=== PATIENT | male | born 1970 | race Caucasian/White ===

== ENCOUNTER 2016-07-31 10:53 | Outpatient (CLI) | payer OTHER | END 2016-07-31 10:54 | disposition home or self-care (01) | DX: G47.30 Sleep apnea, unspecified (principal); G47.8 Other sleep disorders; G47.10 Hypersomnia, unspecified; R06.83 Snoring ==

== ENCOUNTER 2016-08-28 19:31 | Outpatient (CLI) | payer OTHER | END 2016-08-28 19:32 | disposition home or self-care (01) | DX: G47.30 Sleep apnea, unspecified (principal) ==

== ENCOUNTER 2016-09-19 09:38 | Outpatient (CLI) | payer OTHER | END 2016-09-19 09:39 | disposition home or self-care (01) | LOC: SC 09:38 | PROVIDERS: ATTEND Nurse Practitioner Family | DX: R06.83 Snoring (principal); G47.00 Insomnia, unspecified | CPT/HCPCS: 99212; 99214 ==

== ENCOUNTER 2019-08-05 16:49 | Outpatient (CLI) | payer OTHER ==
--- NOTE | 2019-08-06 08:55 | MRI Report ---
Reason: GLENOID FRACTURE Procedure Date: 08/05/2019 Accession Number: [id number] / [id number] Procedure: MRI - Shoulder RT W/O CPT Code: Final Report FULL RESULT: EXAM: RIGHT SHOULDER MRI WITHOUT CONTRAST EXAM DATE: 08/05/2019 06:02 PM. CLINICAL HISTORY: Glenoid fracture. COMPARISON: None. TECHNIQUE: Multiplanar, multisequence T1-weighted and fluid-sensitive sequences of the shoulder without contrast. Other: None. FINDINGS: Rotator cuff: Patchy edema involving the distal supraspinatus, infraspinatus and upper subscapularis. No rotator cuff tear identified. No rotator cuff muscle atrophy or fatty replacement. Long head biceps tendon: Intact demonstrating normal course, signal and morphology. Labrum: Edema, abnormal signal and morphology suggesting ill-defined tears at the posterosuperior and posteroinferior labrum. No paralabral cyst formation. Bones and articular surfaces: Minimally displaced vertical fracture along the entire posterior glenoid with associated bone and soft tissue edema. Prominent impaction fracture at the anteromedial aspect of the humeral head with associated marrow edema consistent with recent reverse Hill-Sachs fracture. Small joint effusion. Deformity of the articular cartilage over the area of impaction. Acromioclavicular joint: Mild degenerative change. Type II acromion. IMPRESSION: 1. Findings consistent with recent posterior shoulder dislocation including acute or subacute reverse Hill-Sachs impaction fracture, and fracture along the posterior rim of the glenoid. 2. Suspicious for ill-defined tears at the posterosuperior and posteroinferior labrum. 3. Mild tendinosis involving the supraspinatus, infraspinatus and upper subscapularis. RADIA
== END 2019-08-05 16:50 | disposition home or self-care (01) ==
LOC: DI 16:49
PROVIDERS: ATTEND Orthopaedic Surgery
DX: S42.141A Displaced fracture of glenoid cavity of scapula, right shoulder, initial encounter for closed fracture (principal); S42.291A Other displaced fracture of upper end of right humerus, initial encounter for closed fracture

== ENCOUNTER 2019-08-07 07:12 | Day surgery (SDC) | payer OTHER ==
[2019-08-07] MEDS: LACTATED RINGERS 1,000 ML IV ONE ×2 (06:54→12:48)
[~2019-08-07 07:12] MED LIST: BUPIVACAINE 0.25% PF 30 ML VIAL ONE; EPINEPHrine 1 MG/ML AMP ONE; cefTRIAXone 2 GM VIAL ONE
[2019-08-07] MEDS ORDERED: MIDAZOLAM 2 MG/2 ML VIAL IVP ONE (07:13)
[2019-08-07] MEDS ORDERED: ONDANSETRON 4 MG/2 ML VIAL IVP ONE (07:13)
[2019-08-07] MEDS ORDERED: HYDROmorphone 1 MG/ML CARPUJECT IVP ONE (07:13)
[2019-08-07] MEDS ORDERED: fentaNYL 100 MCG/2 ML VIAL IVP ONE (07:13)
[2019-08-07] MEDS ORDERED: PROPOFOL 200 MG/20 ML VIAL IVP ONE (07:13)
[2019-08-07] MEDS ORDERED: DEXAMETHASONE 20 MG/5 ML VIAL IVP ONE (07:13)
[2019-08-07] MEDS ORDERED: ROCURONIUM 50 MG/5 ML VIAL IVP ONE (07:13)
--- NOTE | 2019-08-07 07:28 | ANESTHESIA ---
Pre-Anesthesia VS, & Labs - Diagnosis Right humerus fracture - Procedure Right shoulder scope Vital Signs: Temp Pulse Resp BP Pulse Ox 36 C L 72 18 142/103 H 100 08/07/19 06:29 08/07/19 06:29 08/07/19 06:29 08/07/19 06:29 08/07/19 06:29 Height 5 ft 10 in Weight (kg) 95.25 kg Home Medications and Allergies Home Medications: Ambulatory Orders Acetaminophen [Tylenol] 650 mg PO Q6H PRN 08/05/19 Esomeprazole Magnesium [Nexium] 20 mg PO DAILY 08/05/19 Fluticasone [Flonase] 1 sprays PRASANTH DAILY 08/05/19 Sertraline [Zoloft] 100 mg PO DAILY 08/05/19 Simvastatin [Zocor] 20 mg PO DAILY 08/05/19 Nicotine Polacrilex [Nicotine Lozenge] 4 mg PO DAILY 08/07/19 Acetaminophen [Tylenol] 650 mg PO Q6H PRN 08/05/19 Esomeprazole Magnesium [Nexium] 20 mg PO DAILY 08/05/19 Fluticasone [Flonase] 1 sprays PRASANTH DAILY 08/05/19 Sertraline [Zoloft] 100 mg PO DAILY 08/05/19 Simvastatin [Zocor] 20 mg PO DAILY 08/05/19 Nicotine Polacrilex [Nicotine Lozenge] 4 mg PO DAILY 08/07/19 Allergies/Adverse Reactions: Allergies Allergy/AdvReac Type Severity Reaction Status Date / Time No Known Drug Allergies Allergy Verified 08/05/19 11:33 Anes History & Medical History - Anesthetic History Anesthesia Complications: reports: No previous complications Family history of Anesthesia Complications: Denies Family history of Malignant Hyperthermia: Denies - Medical History Cardiovascular: reports: High cholesterol Pulmonary: reports: None Gastrointestinal: reports: GERD Urinary: reports: None Neuro: reports: None Musculoskeletal: reports: Other (RIght shoulder pain) Endocrine/Autoimmune: reports: None Skin: reports: Psoriasis - Surgical History Orthopedic: Other Exam General: Alert, Oriented x3, No acute distress Dental: WNL Mouth Opening: Greater than 4 Fingerbreadths Neck Mobility: Normal Mallampati classification: I Respiratory: Lungs clear Cardiovascular: Regular rate Neurological: Normal speech Mental/Cognitive Status: Alert/Oriented X3, Normal for patient Cognitive Status: Within normal limits Plan Anesthesia Type: General, Interscalene Block Regional Block: Per Surgeon's request for Post Op pain control Consent for Procedure(s) Verified and Reviewed: Yes Code Status: Attempt Resuscitation ASA classification: 2-Mild systemic disease Is this case an emergency?: No
[2019-08-07] MEDS: EPINEPHrine 1 MG/ML AMP IR ONE (09:07)
[2019-08-07] MEDS ORDERED: ONDANSETRON 4 MG/2 ML VIAL IVP PRN (13:21)
[2019-08-07] MEDS ORDERED: oxyCODONE 5 MG TABLET PO PRN (13:21)
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
[2019-08-07 14:12] VITALS: BP 141/95
== END 2019-08-07 07:13 | disposition home or self-care (01) ==
LOC: SDS 07:12
PROVIDERS: ATTEND Orthopaedic Surgery
DX: S42.141A Displaced fracture of glenoid cavity of scapula, right shoulder, initial encounter for closed fracture (principal); M24.011 Loose body in right shoulder; M21.821 Other specified acquired deformities of right upper arm

== ENCOUNTER 2022-01-15 14:14 | Outpatient (CLI) | payer OTHER ==
--- NOTE | 2022-01-15 17:59 | MRI Report ---
PROCEDURE: MRI cervical spine without contrast INDICATIONS: CERVICALGIA TECHNIQUE: Noncontrast sagittal T1 spin echo and T2 fast spin echo, sagittal STIR, foraminal oblique sagittal T2 fast spin echo, and axial gradient echo or T2 fast spin echo through the cervical spine. COMPARISON: None. FINDINGS: Image quality: Excellent. Alignment and Curvature: There is normal bony alignment. Bone Marrow: Marrow demonstrates normal overall signal. Spinal Cord: Visualized spinal cord has normal size and signal. No cerebellar tonsillar herniation. Paraspinous Soft Tissues: No paravertebral masses. Prevertebral soft tissues are normal in thicknes s. C2-C3: Normal in appearance. C3-C4: Normal in appearance. C4-C5: Normal in appearance. C5-C6: Disc space narrowing posterior disc osteophyte complex and hypertrophic uncovertebral joints results in mild to moderate central stenosis. Mild left foraminal stenosis C6-C7: Disc space narrowing posterior disc osteophyte complex and hypertrophic uncovertebral joints results in mild central and moderate left foraminal stenosis. No right foraminal stenosis. C7-T1: Normal in appearance. IMPRESSION: Degenerative disc disease and arthropathy results in mild to moderate central stenosis at C5-6 Reviewed by: Sebastian Jackson MD on 01/15/2022 4:58 PM MAGNUS Approved by: Sebastian Jackson MD on 01/15/2022 4:58 PM [facility] Station ID: [id number]
== END 2022-01-15 14:15 | disposition home or self-care (01) ==
LOC: DI 14:14
PROVIDERS: ATTEND Family Medicine
DX: M50.322 Other cervical disc degeneration at C5-C6 level (principal); M47.812 Spondylosis without myelopathy or radiculopathy, cervical region; M48.02 Spinal stenosis, cervical region

== ENCOUNTER 2022-03-08 08:00 | Day surgery (SDC) | payer OTHER ==
--- NOTE | 2022-03-08 08:24 | ANESTHESIA ---
Pre-Anesthesia VS, & Labs - Diagnosis screening - Procedure colonoscopy Vital Signs: Temp Pulse Resp BP Pulse Ox O2 Flow Rate 36.2 C L 69 11 L 139/89 H 99 03/08/22 08:19 03/08/22 08:19 03/08/22 08:19 03/08/22 08:19 03/08/22 08:19 Height: 5 ft 10 in Weight (kg): 101 kg Body Mass Index: 31.9 BMI Classification: Obese - NPO >8 hours Last Fluid Intake: am prep - Lab Results Lab results reviewed: Yes Home Medications and Allergies Acetaminophen [Tylenol] 650 mg PO Q6H PRN 08/05/19 Esomeprazole Magnesium [Nexium] 20 mg PO PRN PRN 08/05/19 Fluticasone [Flonase] 1 sprays PRASANTH PRN PRN 08/05/19 Sertraline [Zoloft] 150 mg PO DAILY 08/05/19 Simvastatin [Zocor] 20 mg PO DAILY 08/05/19 Nicotine Polacrilex [Nicotine Lozenge] 4 mg PO DAILY 08/07/19 Allergies/Adverse Reactions: Allergies Allergy/AdvReac Type Severity Reaction Status Date / Time No Known Drug Allergies Allergy Verified 03/07/22 12:49 Anes History & Medical History - Anesthetic History Anesthesia Complications: reports: No previous complications Family history of Anesthesia Complications: Denies Family history of Malignant Hyperthermia: Denies - Medical History Cardiovascular: reports: High cholesterol Pulmonary: reports: None Gastrointestinal: reports: GERD Urinary: reports: None Neuro: reports: None Musculoskeletal: reports: Osteoarthritis, Other Endocrine/Autoimmune: reports: None Skin: reports: Psoriasis - Surgical History Orthopedic: reports: Shoulder arthroplasty, Other Exam General: Alert, Oriented x3, Cooperative Dental: WNL Mouth Openin Fingerbreadth Neck Mobility: Normal Mallampati classification: II Thyromental Distance: 4-6 cm Respiratory: Lungs clear, Normal breath sounds, No respiratory distress Cardiovascular: Regular rate Neurological: Normal gait, Normal speech Mental/Cognitive Status: Alert/Oriented X3, Normal for patient Cognitive Status: Within normal limits Plan Anesthesia Type: Total IV Consent for Procedure(s) Verified and Reviewed: Yes Code Status: Attempt Resuscitation ASA classification: 2-Mild systemic disease Is this case an emergency?: No
[2022-03-08] MEDS ORDERED: PROPOFOL 500 MG/50 ML 500 MG/50 ML VIAL ONE (08:25)
[2022-03-08] MEDS ORDERED: MIDAZOLAM 2 MG/2 ML VIAL ONE (08:27)
[2022-03-08] MEDS ORDERED: LACTATED RINGERS 1,000 ML IV ONE (08:29)
[2022-03-08] MEDS ORDERED: LACTATED RINGERS 500 ML IV ONE (09:37)
[2022-03-08 10:01] VITALS: BP 109/77
--- NOTE | 2022-03-08 10:06 | ANESTHESIA POST OP EVALUATION ---
Anesthesia Post Eval - Post Anesthesia Eval Vitals: Last Vital Signs Temp 36.3 C L 03/08/22 10:00 Pulse 65 03/08/22 10:00 Resp 16 03/08/22 10:00 BP 109/77 03/08/22 10:00 Pulse Ox 97 03/08/22 10:00 O2 Flow Rate CV Function Including HR & BP: Stable Pain Control: Satisfactory Nausea & Vomiting: Negative Mental Status: Baseline Respiratory Status: Airway Patent Hydration Status: Satisfactory Anesthesia Complications: None
== END 2022-03-08 08:01 | disposition home or self-care (01) ==
LOC: SDS 08:00
PROVIDERS: ATTEND Surgery
PROC: 0DBM8ZZ Excision of Descending Colon, Via Natural or Artificial Opening Endoscopic (ICD-10-PCS; principal; 2022-03-08 09:30)
DX: Z12.11 Encounter for screening for malignant neoplasm of colon (principal); D12.4 Benign neoplasm of descending colon; K57.30 Diverticulosis of large intestine without perforation or abscess without bleeding; E66.9 Obesity, unspecified; Z68.31 Body mass index [BMI] 31.0-31.9, adult
CPT/HCPCS: 45380; J7120

== ENCOUNTER 2022-10-14 19:12 | Emergency (ER) | payer OTHER ==
[2022-10-14] MEDS ORDERED: KETOROLAC 30 MG/ML VIAL IVP STA (19:38)
[2022-10-14] MEDS ORDERED: SODIUM CHLORIDE 0.9% 1,000 ML IV STA (19:38)
--- NOTE | 2022-10-14 19:42 | ED Physician Documentation ---
PD HPI ABD PAIN - Stated complaint Stated Complaint: MALE /BACK PX - Chief complaint Chief Complaint: General - History obtained from History obtained from: Patient, Family - History of Present Illness Timing - onset: Yesterday Timing - duration: Days (1) Timing - details: Abrupt onset, Waxing and waning, Still present in ED Quality: Sharp, Pain Location: LLQ, Other (L testicle) Radiation: Left flank Improved by: Other (nothing) Worsened by: Other (nothing) Associated symptoms: Nausea. No: Fever, Vomiting, Diarrhea, Constipation, Dysuria, Hematuria Similar symptoms before: Has not had sx before Recently seen: Not recently seen - Additional information Additional information: 52-year-old Aren Morillo reports that yesterday he began to feel some pains in his left lower quadrant that he felt like might be gas and he had some pain radiating down into his left testicle and this seemed to resolve he was doing well today and then woke up from a nap in horrible pain on the left side the pain is into the left testicle and radiated into the left flank. The patient is unable to get comfortable in any position. He has not had this happen to him previously. He has a family history of kidney stone. Review of Systems Constitutional: denies: Fever Eyes: denies: Decreased vision Ears: denies: Ear pain Nose: denies: Rhinorrhea / runny nose, Congestion Throat: denies: Sore throat Cardiac: denies: Chest pain / pressure, Palpitations Respiratory: denies: Dyspnea, Cough GI: reports: Abdominal Pain, Nausea. denies: Vomiting, Constipation, Diarrhea : reports: Testicular pain. denies: Dysuria, Frequency, Hematuria Skin: denies: Rash Musculoskeletal: reports: Back pain. denies: Neck pain PD PAST MEDICAL HISTORY - Past Medical History Cardiovascular: High cholesterol Respiratory: None Neuro: None Endocrine/Autoimmune: None GI: GERD : None HEENT: None Psych: None Musculoskeletal: Osteoarthritis, Other Derm: Psoriasis - Past Surgical History Ortho: Shoulder arthroplasty, Other - Present Medications Home Medications: Ambulatory Orders Medication Instructions Recorded Confirmed Acetaminophen [Tylenol] 650 mg PO Q6H PRN 08/05/19 03/07/22 Esomeprazole Magnesium [Nexium] 20 mg PO PRN PRN 08/05/19 03/07/22 Fluticasone [Flonase] 1 sprays PRASANTH PRN PRN 08/05/19 03/07/22 Sertraline [Zoloft] 150 mg PO DAILY 08/05/19 03/07/22 Simvastatin [Zocor] 20 mg PO DAILY 08/05/19 03/07/22 Nicotine Polacrilex [Nicotine 4 mg PO DAILY 08/07/19 03/07/22 Lozenge] Dupilumab [Dupixent Pen] 200 mg SQ 03/08/22 HYDROcod/ACETAM 5/325 [[place] 5/325] 1 - 2 tablet PO Q6H PRN #14 tablet 10/14/22 - Allergies Allergies/Adverse Reactions: Allergies Allergy/AdvReac Type Severity Reaction Status Date / Time No Known Drug Allergies Allergy Verified 10/14/22 19:17 PD ED PE NORMAL - Vitals Vital signs reviewed: Yes (hypertensive) - General General: Alert and oriented X 3, Well developed/nourished, Other (Uncomfortable 52-year-old male lying on his right side with his left leg up appears to be in pain) - HEENT HEENT: Atraumatic, PERRL, EOMI - Neck Neck: Supple, no meningeal sign - Cardiac Cardiac: RRR, No murmur - Respiratory Respiratory: No respiratory distress, Clear bilaterally - Abdomen Abdomen: Normal bowel sounds, Soft, Non tender, Non distended, No organomegaly - Back Back: No CVA TTP, No spinal TTP - Derm Derm: Normal color, Warm and dry, No rash - Extremities Extremities: No deformity, No edema - Neuro Neuro: Alert and oriented X 3, conciliator 2-12 intact, No motor deficit, No sensory deficit, Normal speech Eye Opening: Spontaneous Motor: Obeys Commands Verbal: Oriented GCS Score: 15 - Psych Psych: Normal mood, Normal affect Results - Vitals Vitals: Vital Signs - 24 hr 10/14/22 10/14/22 10/14/22 19:17 20:00 20:47 Temperature 36.5 C Heart Rate 70 65 67 Respiratory 20 16 Rate Blood Pressure 150/92 H 139/85 H 138/86 H O2 Saturation 96 96 99 10/14/22 22:00 Temperature Heart Rate 69 Respiratory 16 Rate Blood Pressure 139/94 H O2 Saturation 94 Oxygen O2 Source Room air - Labs Labs: Laboratory Tests 10/14/22 10/14/22 10/14/22 19:48 19:48 20:43 WBC 10.7 RBC 5.13 Hgb 15.5 Hct 46.8 MCV 91.2 MCH 30.2 MCHC 33.1 RDW 13.1 Plt Count 377 MPV 9.1 Neut # (Auto) 6.8 H Lymph # (Auto) 2.8 [place] # (Auto) 0.9 Eos # (Auto) 0.1 Baso # (Auto) 0.1 Absolute Nucleated RBC 0.00 Nucleated RBC % 0.0 Sodium 142 Potassium 4.0 Chloride 109 Carbon Dioxide 24 Anion Gap 9.0 BUN 18 Creatinine 1.0 Estimated GFR (MDRD) 79 L Glucose 122 H Calcium 9.3 Total Bilirubin 0.5 AST 26 ALT 17 Alkaline Phosphatase 70 Total Protein 7.8 Albumin 4.6 Globulin 3.2 Albumin/Globulin Ratio 1.4 Lipase 33 Urine Color YELLOW Urine Clarity CLEAR Urine pH 6.0 Ur Specific [place] >=1.030 H Urine Protein NEGATIVE Urine Glucose (UA) NEGATIVE Urine Ketones NEGATIVE Urine Occult Blood LARGE H Urine Nitrite NEGATIVE Urine Bilirubin NEGATIVE Urine Urobilinogen 1 (NORMAL) Ur Leukocyte Esterase NEGATIVE Urine RBC 11-25 H Urine WBC 0-3 Ur Squamous Epith Cells NONE SEEN Urine Bacteria None Seen Urine Mucus Few Strands Ur Microscopic Review INDICATED Urine Culture Comments NOT INDICATED - Rads (name of study) CT abdomen pelvis without Relevant Findings:: Prelim report reviewed (Impression: 1. Obstructing stone or cluster of stones in the left UPJ with associated mild hydronephrosis and perinephric stranding. Punctate nonspecific right renal stone.), EMP independent interpretation of test Procedures - Bedside sono Bedside sono by EMP: With use of POCUS the left kidney is imaged it is sonographically nontender and there is evidence of hydronephrosis. PD Medical Decision Making - ED course Complexity details: considered differential, d/w patient, d/w family Reviewed Lab Results: We reviewed a complete blood count showing a normal white blood cell count normal hemoglobin hematocrit and platelets chemistries were unremarkable with normal electrolytes normal kidney and liver function a urine showed a concentrated urine with large occult blood and 11-25 red blood cells per high- powered field. My interpretation of these benign-appearing laboratory results with the exception of hematuria, support our diagnosis of ureterolithiasis as likely the cause of this patient's pain. ED course: 52-year-old Aren Morillo presented to the emergency department with left testicular pain and severe pain. He presented with pain that could potentially be related to testicular torsion and before examining the patient I ordered a t esticular ultrasound. I then immediately examined the patient and with the use of POCUS I was able to detect hydro on the left kidney. His history was consistent with renal colic and I cancelled the order for the ultrasound and began treatment with saline and tordal and ordered the CT ab/pel. This demonstrated a large stone or a group of stones measuring 7mm X at least 13mm and causing partial obstruction. The stone is in the proximal ureter. The patient responded to treatment with improvement in the pain but had a recurrence and this was improved with the use of diluadid. This large stone is unlikely to pass spontaneously and the patient will need urologic evaluation. I was able to contact the urologist at [facility] who kindly agreed to see the patient expeditiously. Departure - Departure Disposition: 01 Home, Self Care Clinical Impression: Ureterolithiasis Condition: Stable Instructions: ED Stone Renal W Colic Follow-Up: CHEMA BANGURA MD [Physician No Access] - Prescriptions: HYDROcod/ACETAM 5/325 [[place] 5/325] 1 - 2 tablet PO Q6H PRN #14 tablet PRN Reason: Pain Comments: Aren, it looks like the stone you have in your left kidney and collecting system is too large to pass. This will likely require a urologic intervention and my recommendation is to call the urologist office as soon as they are open to set up an appointment to be seen urgently. In the meantime control of your pain is paramount and the recommendation is to increase your fluid intake, take ibuprofen on a regular basis for pain control and pain not relieved with this should be addressed with the narcotic pain reliever which we have prescribed for you. I have E scribed some [place] for you to the [facility] in [place]. If you lose control of your pain we are here 24 hours a day and we would be happy to help you. I have left you the name of a urologist at [facility] who we trust and know. Discharge Date/Time: 10/14/22 22:10
[2022-10-14] MEDS ORDERED: ONDANSETRON 4 MG/2 ML VIAL IVP STA (19:43)
[2022-10-14 19:54] LABS: BASOPHILS # (AUTO) 0.1 10^3/uL (0.0-0.1); BASOPHILS % (AUTO) 0.7 %; EOSINOPHILS # (AUTO) 0.1 10^3/uL (0.0-0.7); EOSINOPHILS % (AUTO) 1.3 %; HCT - HEMATOCRIT 46.8 % (42.0-52.0); HGB - HEMOGLOBIN 15.5 g/dL (14.0-18.0); LYMPHOCYTES # (AUTO) 2.8 10^3/uL (1.5-3.5); LYMPHOCYTES % (AUTO) 26.3 %; MEAN CORPUSCULAR HEMOGLOBIN 30.2 pg (27.0-31.0); MEAN CORPUSCULAR HGB CONC 33.1 g/dL (32.0-36.0); MEAN CORPUSCULAR VOLUME 91.2 fL (80.0-94.0); MEAN PLATELET VOLUME 9.1 fL (7.4-11.4); MONOCYTES # (AUTO) 0.9 10^3/uL (0.0-1.0); MONOCYTES % (AUTO) 8.2 %; NEUTROPHILS # (AUTO) 6.8 10^3/uL (1.5-6.6); NEUTROPHILS % (AUTO) 63.3 %; PLT - PLATELET COUNT 377 10^3/uL (130-450); RED BLOOD COUNT 5.13 10^6/uL (4.70-6.10); RED CELL DISTRIBUTION WIDTH 13.1 % (12.0-15.0); WHITE BLOOD COUNT 10.7 x10^3/uL (4.8-10.8)
[2022-10-14 20:06] LABS: ALBUMIN 4.6 g/dL (3.2-5.5); ALBUMIN/GLOBULIN RATIO 1.4 (1.0-2.2); BILIRUBIN,TOTAL 0.5 mg/dL (0.2-1.0); CALCIUM 9.3 mg/dL (8.5-10.3); TOTAL PROTEIN 7.8 g/dL (6.7-8.2)
--- NOTE | 2022-10-14 20:33 | CT Report ---
PROCEDURE: ABDOMEN/PELVIS WO INDICATIONS: L flank pain testicle pain hydro on pocus TECHNIQUE: A CT scan of the abdomen and pelvis was performed without the use of intravenous contrast. Images we re recorded and evaluated at appropriate window settings. Reformats: coronal and sagittal. For radiat ion dose reduction, the following was used: automated exposure control, adjustment of mA and/or kV ac cording to patient size. COMPARISON: None. FINDINGS: Image quality: Excellent. Lung bases: There is minimal dependant atelectasis. Heart: Heart is normal in size. URINARY: Right Kidney and Ureter: No hydronephrosis. There is a punctate nonspecific and stone within the in ferior pole of the right kidney. No hydroureter. Left Kidney and Ureter: There is a curvilinear stone or cluster of stones at the left ureteropelvic junction measuring up to approximately 1.2 cm in length with attenuation values of approximately 1000 -1100 Hounsfield units. There is associated mild left hydronephrosis and perinephric stranding. The u reter is nondistended distal to the UPJ. Bladder: Normal wall thickness. No stones. ABDOMEN: Liver: Noncontrast evaluation of the liver demonstrates no discrete mass. Gallbladder: Within normal limits without calcified gallstones. Biliary ducts: No biliary ductal dilatation. Pancreas: Unremarkable. Spleen: Normal in size. Adrenal Glands: No adrenal nodules. Stomach and Bowel: Stomach, small bowel loops, and colon are normal in caliber and wall thickness. T he appendix is normal. Peritoneum: No abnormal intraperitoneal fluid. No free air. Ventral Wall: No hernia. Abdominal Nodes: No retroperitoneal or mesenteric adenopathy by size criteria. Vessels: Aorta and inferior vena cava are normal in size. PELVIS: Pelvic Organs: Unremarkable. Pelvic Nodes: No enlarged lymph nodes. Miscellaneous: There is a small fat-containing left inguinal hernia. Bones: Visualized osseous structures demonstrate no suspicious focal lesions. IMPRESSION: 1. Obstructing stone or cluster of stones in the left UPJ with associated mild hydronephrosis and per inephric stranding. 2. Punctate nonspecific right renal stone. Reviewed by: Caleb Sloan MD on 10/14/2022 8:32 PM PDT Approved by: Caleb Sloan MD on 10/14/2022 8:32 PM PDT Station ID: [id number]
[2022-10-14] MEDS ORDERED: HYDROmorphone 1 MG/ML CARPUJECT IVP STA (20:44)
[2022-10-14] MEDS ORDERED: HYDROcod/ACET 5/325 Prepack 4 PO STA (20:54)
[2022-10-14 20:57] LABS: BILIRUBIN,URINE NEGATIVE (NEGATIVE); GLUCOSE, URINE (UA) NEGATIVE (NEGATIVE); KETONES,URINE (UA) NEGATIVE (NEGATIVE); LEUKOCYTE ESTERASE, URINE NEGATIVE (NEGATIVE); NITRITE,URINE NEGATIVE (NEGATIVE); OCCULT BLOOD,URINE LARGE (NEGATIVE); PROTEIN,URINE NEGATIVE (NEGATIVE); UROBILINOGEN,URINE 1 (NORMAL) E.U./dL (NORMAL)
[2022-10-14 20:59] LABS: CLARITY,URINE CLEAR (CLEAR)
[2022-10-14 21:09] LABS: BACTERIA,URINE None Seen /HPF (None Seen); MUCUS,URINE Few Strands; SQUAMOUS EPITHELIAL CELL,UR NONE SEEN (<= Few); WBC,URINE 0-3 /HPF (0-3)
[2022-10-14 22:04] VITALS: BP 139/94
== END 2022-10-14 22:10 | disposition home or self-care (01) ==
LOC: ED 19:12
DX: N13.2 Hydronephrosis with renal and ureteral calculous obstruction (principal)
CPT/HCPCS: 36415; 74176; 80053; 81001; 83690; 85025; 96374; 96375; 99284; J1170; 81003; 87086

== ENCOUNTER 2022-10-17 14:36 | Emergency (ER) | payer OTHER ==
[2022-10-17 14:47] VITALS: BP 150/90
[2022-10-17] MEDS ORDERED: TAMSULOSIN 0.4 MG CAPSULE PO STA (15:01)
[2022-10-17] MEDS ORDERED: HYDROmorphone 1 MG/ML CARPUJECT IM STA (15:01)
--- NOTE | 2022-10-17 15:06 | ED Physician Documentation ---
PD HPI MALE - Stated complaint Stated Complaint: LOWER BACK/GROIN PX - Chief complaint Chief Complaint: Abd Pain - Additional information Additional information: 52-year-old male who presents with known left ureteral stone. He was seen here several days ago and had a CT scan, he has 1.2 Centimeter stone at the UPJ. He has a appointment scheduled with urology on 10/24 but he continues to have pain. No fever, no nausea or vomiting, is tolerating p.o. well. He has been taking 400 mg of ibuprofen twice a day along with his hydrocodone taking 1 to 2 tablets every 6 hours as ordered and he states that this does not relieve his pain. He is not on tamsulosin. He has no new symptoms but continues to have the left flank pain. Review of Systems Constitutional: reports: Reviewed and negative Cardiac: reports: Reviewed and negative Respiratory: reports: Reviewed and negative GI: reports: Reviewed and negative : reports: Other (Left flank pain, voiding well) PD PAST MEDICAL HISTORY - Past Medical History Past Medical History: Yes Cardiovascular: High cholesterol Respiratory: None Neuro: None Endocrine/Autoimmune: None GI: GERD : None HEENT: None Psych: None Musculoskeletal: Osteoarthritis, Other Derm: Eczema, Psoriasis - Past Surgical History Past Surgical History: Yes Ortho: Shoulder arthroplasty, Other - Present Medications Home Medications: Ambulatory Orders Medication Instructions Recorded Confirmed Acetaminophen [Tylenol] 650 mg PO Q6H PRN 08/05/19 10/17/22 Esomeprazole Magnesium [Nexium] 20 mg PO PRN PRN 08/05/19 10/17/22 Sertraline [Zoloft] 150 mg PO DAILY 08/05/19 10/17/22 HYDROcod/ACETAM 5/325 [[place] 5/325] 1 - 2 tablet PO Q6H PRN #14 tablet 10/14/22 10/17/22 Atorvastatin [Lipitor] 20 mg ORAL DAILY 10/17/22 10/17/22 Dupilumab [Dupixent Pen] 300 mg SQ Q14D 10/17/22 10/17/22 Hydrocodone/Acetaminophen 1 each PO Q6HR PRN #20 tablet 10/17/22 [Hydrocodone-Acetamin 7.5-300] Ibuprofen [Motrin] 400 mg PO Q6H PRN 10/17/22 10/17/22 Tamsulosin [Flomax] 1 cap PO DAILY #14 cap 10/17/22 - Allergies Allergies/Adverse Reactions: Allergies Allergy/AdvReac Type Severity Reaction Status Date / Time No Known Drug Allergies Allergy Verified 10/17/22 14:40 - Social History Does the pt smoke?: No Smoking Status: Never smoker Does the pt drink ETOH?: No Does the pt have substance abuse?: No - Immunizations Immunizations are current?: Yes PD ED PE NORMAL - Vitals Vital signs reviewed: Yes - General General: Alert and oriented X 3, No acute distress, Well developed/nourished - HEENT HEENT: Atraumatic, Moist mucous membranes - Cardiac Cardiac: RRR, No murmur - Respiratory Respiratory: No respiratory distress, Clear bilaterally - Abdomen Abdomen: Normal bowel sounds, Soft, Non tender, Non distended - Back Back: No CVA TTP, No spinal TTP - Derm Derm: Normal color, Warm and dry Results - Vitals Vitals: Vital Signs - 24 hr 10/17/22 14:40 Temperature 36.5 C Heart Rate 72 Respiratory 16 Rate Blood Pressure 150/90 H O2 Saturation 100 Oxygen O2 Source Room air - Rads (name of study) No standard instances Relevant Findings:: Final report received (Reviewed CT from last visit) PD Medical Decision Making - ED course Complexity details: reviewed old records, reviewed results, d/w patient ED course: 52-year-old male with a known left ureteral stone with plans to follow-up with urology in a week, presents with ongoing left flank pain. He has no signs of toxicity, afebrile, tolerating p.o. well, no dysuria. I have a suspicion for an infected stone. A I will therefore give some additional pain medication at this time as he has a large stone that is likely uncomfortable. He was given 1 mg of IM Dilaudid here and we will start him on tamsulosin and I recommended that he increase the ibuprofen to 803 times a day to give him some more pain relief throughout the day and then I have prescribed hydrocodone to hopefully get him through until his urology appointment. I did Reviewed return precautions if he should develop a fever, vomiting, dysuria or other new concerns Departure - Departure Disposition: 01 Home, Self Care Clinical Impression: Left ureteral stone Condition: Good Instructions: ED Stone Renal W Colic Prescriptions: Hydrocodone/Acetaminophen [Hydrocodone-Acetamin 7.5-300] 1 each PO Q6HR PRN #20 tablet PRN Reason: Pain >8 Tamsulosin [Flomax] 1 cap PO DAILY #14 cap Comments: Please take 800 mg of ibuprofen every 8 hours as needed for pain and use the narcotic pain medication for breakthrough pain only. Continue to drink plenty of oral fluids and I have started you on tamsulosin which sometimes can help with some of the pain from ureteral spasms. Follow-up with your urologist as scheduled on the . Return if you develop a fever, vomiting or other new concerns. Discharge Date/Time: 10/17/22 15:14
== END 2022-10-17 15:14 | disposition home or self-care (01) ==
LOC: ED 14:36
DX: N20.1 Calculus of ureter (principal)
CPT/HCPCS: 96372; 99283; A9270; J1170

== ENCOUNTER 2023-09-02 09:10 | Outpatient (CLI) | payer OTHER ==
--- NOTE | 2023-09-02 21:13 | SLEEP CARE CONSULTATION ---
Information from patient questionnaire entered by Armen Simon. I have reviewed and concur with the information entered by Armen Simon. This document represents the service I personally performed and the decisions made by me, Clement Ascencio MD, [facility]. History of Present Illness Service Date and Time: 09/02/2023 0910 Reason for Visit: New patient Chief Complaint: reports: Frequent awakenings at night Date of Onset: 12YRS Usual bedtime: 2200 Time it takes to fall asleep: 30MINS Snores at night: No Observed to quit breathing while asleep: No Sleeps alone due to snoring: No Number of times waking at night: 2 Reasons for waking at night: reports: Bathroom, Other (BATHROOM) Toss, Turn, or Twitch while sleeping: Yes Recalls having dreams: Yes Usually gets out of bed at: 0600 Feels refreshed in the morning: No Morning headache: No Sleepy or fatigued during the day: Yes Ever fallen asleep while driving: No Takes day naps: No Dreams during day naps: Yes Prior sleep studies: Yes Additional HPI information: I had the pleasure of seeing Mr. Morillo today regarding his excessive movement in bed at night. He continues to report loud snore and his seeing him quit breathing. He had an in-laboratory polysomnography here in 2017 that was negative for sleep disrupting conditions, including sleep-related breathing disorder and periodic leg movement of sleep. Since then, he has gained 10 lbs. His legs bother him slightly when he tries to fall asleep. The patient tells me that he normally goes to bed around 10 pm, and it takes him approximately 30 minutes to fall asleep. His bed partner can still sleep in the same bed. He can recall waking up on the average of 2 times during the night. In the morning he usually gets up out of the bed around 6:00 a.m. not feeling refreshed nor rested. He usually does not have a morning headache. During the day he complains of feeling sleepy and fatigued. His score on Rankin Sleepiness Scale is 6 out of 24. He never has fallen asleep while driving nor has had any accident due to sleepiness. - Parasomnia Symptoms Ever been unable to move upon waking from sleep: No Walks in sleep: No Talks in sleep: Yes Ever acted out dreams in sleep: No Ever felt weak in the knees when startled or emotional: No Bothered by creepy, crawly, restless sensations in legs: Yes Problems with memory or concentration: Yes Subjective Initial Rankin Sleepiness Scale score: 6 (09/02/23) Past Medical History Past Medical History: reports: Anxiety, GERD, Other (HYPERLIPIDEMIA ECZEMA) Social History The patient's occupation is a RE. Patient is Single and lives in [place]. Have you smoked in the past 12 months: Yes Cigarettes per day (20/pack): 10 Years of smokin Smoking Pack Years: 15.0 Alcohol use: Yes Alcohol amount and frequency: 1 2WKS Caffeine use: Yes Caffeine amount and frequency: 2CUPS [ER DAY Family History Family history of sleep disordered breathing: Yes Family Hx Sleep Apnea: Father: Snoring, Sleep apnea - Treated Allergies and Home Medications Known drug allergies: No Drug allergies reviewed: Yes Home medication list reviewed: Yes Allergy and home medication list: Allergies No Known Drug Allergies Allergy (Verified 08/29/23 11:43) Review of Systems Weight gain over past 5 years: 10 Cardiovascular: denies: high blood pressure, palpitations, chest pain, irregular heart rate or pulse, leg or foot swelling, have to sleep sitting up, other Respiratory: denies: shortness of breath, wheeze, sputum production, chronic cough, other Gastrointestinal: denies: heartburn, difficulty swallowing, nausea, vomitting, diarrhea, abdominal pain, other Urinary: denies: incontinence, frequency, urgency, impotence, other Neurological: denies: headaches, seizure, head trauma, disorientation, speech dysfunction, gait or balance problems, fainting or unconsciousness, other Psychiatric: reports: anxiety Ear/Nose/Throat: reports: sinus problems, wisdom teeth removed Musculoskeletal: reports: joint pain, neck pain, back pain, muscle pain or cram ping Immunologic: reports: sneezing, itching Physical Exam Vital signs obtained and entered by: ARMEN Cummins MA Blood Pressure: 120/87 (RIGHT ARM) Cuff size: regular Heart Rate: 68 O2 Saturation: 98 Height: 5 ft 10 in Weight: 217 lb 9.6 oz Body Mass Index: 31.2 BMI Classification: Obese Neck circumference: 16.25 Mood/affect: normal HEENT: No craniofacial malformation Nostrils: patent to airflow Mouth and throat: narrow oropharynx Soft palate: long Hard palate: normal Uvula: normal Uvula visualization: 50% Mallampati Class II Tongue: normal in size Tonsils: small Chin and jaw: normal size and position Heart: regular rate and rhythm Neurologic: intact Impression and Plan IMPRESSION: 1. Suspected sleep apnea, as suggested by history of loud and irregular snoring, observed cessation of breath while asleep, frequent awakenings during the night, unrefreshed sleep, daytime hypersomnolence. Narrow oropharynx and obesity are common predisposing factors for obstructive sleep apnea-hypopnea syndrome. Pathophysiology of sleep-disordered breathing was discussed. I recommend proceeding to polysomnography to confirm the diagnosis and to assess severity. I informed the patient of what the sleep studies involve and after some discussion, he agreed to proceed. Plan: 1. Repeat in-laboratory polysomnography 2. Return for follow up after the sleep study. Counseling Topics: Weight control Follow up with Sleep Care in: 1-2 months Follow up recommended for: Weight management Visit Type: In Office Time Spent with Patient (minutes): 15 Provider Statement: I spent 100% of the Face to Face Visit with the patient with greater than 50% spent counseling the patient and coordination of care.
[2023-09-02 21:22] VITALS: BP 120/87; O2SAT 98
== END 2023-09-02 09:11 | disposition home or self-care (01) ==
LOC: SC 09:10
PROVIDERS: ATTEND Internal Medicine Pulmonary Disease
DX: R06.83 Snoring (principal); R06.81 Apnea, not elsewhere classified; G47.8 Other sleep disorders; G47.10 Hypersomnia, unspecified; E66.9 Obesity, unspecified; Z68.31 Body mass index [BMI] 31.0-31.9, adult; F17.210 Nicotine dependence, cigarettes, uncomplicated
CPT/HCPCS: 99202; 99212

== ENCOUNTER 2023-10-22 19:34 | Outpatient (CLI) | payer OTHER | END 2023-10-22 19:35 | disposition home or self-care (01) | LOC: SC 19:34 | PROVIDERS: ATTEND Internal Medicine Pulmonary Disease | DX: G47.33 Obstructive sleep apnea (adult) (pediatric) (principal); E66.3 Overweight; Z68.31 Body mass index [BMI] 31.0-31.9, adult | CPT/HCPCS: 95810 ==

== ENCOUNTER 2023-12-06 09:22 | Outpatient (CLI) | payer OTHER ==
--- NOTE | 2023-12-06 09:59 | Sleep Patient Instructions ---
Sleep Center Visit Summary - Patient Visit Information Reason for Visit: Sleep study follow-up - Patient Instructions Additional Instructions: You are to start Positional therapy to control your sleep apnea. You may obtain positional belts or other commercial devices online. You may also use pillows to position yourself on your side or a T shirt with balls sewn into the back to help keep you on your side to sleep. We would like to follow up with you in a month to check effectiveness of therapy. Please call office to schedule a follow up appointment in the sleep care office in 1-2 months. - Clinic Information Contact: [facility] [address] [place] [address] [email or web address] T: [phone]
[2023-12-06 10:01] VITALS: BP 146/88; O2SAT 100
--- NOTE | 2023-12-06 10:01 | SLEEP CARE CONSULTATION ---
Information from patient questionnaire entered by Chantal Simon. I have reviewed and concur with the information entered by Chantal Simon. This document represents the service I personally performed and the decisions made by , Sarah Salazar ARNP. History of Present Illness Service Date and Time: 12/06/2023921 Initial Cushing Sleepiness Scale score: 6 (09/02/23) Current Cushing Sleepiness Scale score: 2 (12/06/23) Additional HPI information: KAYLYNN DODD returns for follow up and results of the recently performed polysomnography. The sleep study done on 10/22/23 showed mild obstructive sleep apnea with an average AHI of 6.6 and christopher oxygen saturation of 84%. I explained the pathophysiology behind obstructive sleep apnea. We then spent quite a bit of time discussing different treatment options. For mild obstructive sleep apnea, surgery and oral appliance are alternatives to nasal CPAP therapy but in moderate or severe cases, nasal CPAP is the most effective and reliable treatment. Because apnea is primarily in supine position, then positional management therapy could be effective. Methods discussed such as positioning with pillows, using a T-shirt with tennis balls in the back or commercial products that have a pillow format on back to prevent supine sleep. I reviewed the impact of weight changes on sleep apnea and strongly recommended losing weight. After some discussion, the patient opted to positional therapy. Patient counseled not drink alcohol less than 4 hours before bedtime as it can increase snoring and apnea. Patient was cautioned about risks of drowsy driving until sleepiness symptoms resolve. Patient denies drowsy driving. Sleep Study - Results Type of Sleep Study: Polysomnography (COMPLETED 10/22/23) Prior sleep studies: Yes Polysomnography/Home Sleep Study results: IMPRESSION: The quality of the study is good. The patient had normal sleep efficiency. The sleep architecture was relatively normal as well considering the first night effect. Respiratory monitoring showed mild obstructive sleep apnea-hypopnea (AHI = 6.6) associated with oxyhemoglobin desaturation and mild hypoxia (christopher oxygen saturation of 84%) but not sleep fragmentation. The respiratory events occurred almost exclusively during supine sleep (supine AHI = 17.4; non-supine = 2.64). Snore was loud in intensity. There was no significant periodic leg movement of sleep. Cardiac rhythm was normal sinus rhythm without significant arrhythmia. No abnormal behavior (parasomnia) observed during the night Allergies and Home Medications Known drug allergies: No Drug allergies reviewed: Yes Home medication list reviewed: Yes (no changes) Allergy and home medication list: Allergies No Known Drug Allergies Allergy (Verified 12/06/23 09:25) Review of Systems Review of systems same as previous: Yes (NO CHANGE) Physical Exam Vital signs obtained and entered by: CHANTAL Cummins MA Blood Pressure: 146/88 (LEFT ARM) Cuff size: regular Heart Rate: 66 O2 Saturation: 100 Height: 5 ft 10 in Weight: 214 lb 6.4 oz Body Mass Index: 30.7 BMI Classification: Obese Impression and Plan 1. Obstructive Sleep Apnea-Hypopnea Syndrome, mild, with lowest oxygen saturation of 84%. Obviously this is the cause of the patients symptoms of unrefreshed sleep, and excessive daytime sleepiness. Positive pressure therapy could benefit anxiety and gastric reflux. Since patients apnea is primarily in supine position, patient advised to try positional therapy and agreed with plan. He is also advised to lose weight as this will reduce snoring and apnea. An oral appliance can also be used for snoring but often is not covered by insurance. Follow up is scheduled for one month to check effectiveness and if further evaluation indicated such a repeat study in supine position only to see if additional treatment indicated. 2. Obesity, unspecified. Currently patients BMI is 30.7. Obesity increases the risk of apnea, CPAP pressure requirements and overall health risks especially cardiovascular and diabetes. Thus patient is advised to lose weight. * Positional therapy * Attempt to lose weight. * Avoid alcohol consumption near bedtime. * Avoid supine sleep until. * Return in 1-2 months. I will assess response to therapy at that time. Counseling Topics: Sleeping position, Weight loss health impact Follow up with Sleep Care in: 1-2 months Plan: positional therapy and followup Visit Type: In Office Time Spent with Patient (minutes): 24 Provider Statement: I spent 100% of the Face to Face Visit with the patient with greater than 50% spent counseling the patient and coordination of care.
== END 2023-12-06 09:23 | disposition home or self-care (01) ==
LOC: SC 09:22
PROVIDERS: ATTEND Nurse Practitioner Family
DX: G47.33 Obstructive sleep apnea (adult) (pediatric) (principal); E66.9 Obesity, unspecified; Z68.30 Body mass index [BMI] 30.0-30.9, adult
CPT/HCPCS: 99212; 99213